=== PATIENT | male | born 1950 | race Caucasian/White ===

== ENCOUNTER → 2016-09-04 | Outpatient (CLI) | payer BC, MEDICARE ==
[~2016-09-04] MED LIST: ASCO-96 PO; ASPI-496 PO; HYDR25TA6 PO; LISI-170 PO; MULT-412 PO
[2016-09-04 14:05] LABS: BLOOD UREA NITROGEN 17 mg/dL (7-18)
[2016-09-04 14:10] LABS: ASPARTATE AMINO TRANSFERASE 22 U/L (15-37)
== END | disposition home or self-care (01) ==
LOC: STAR 12:51
PROVIDERS: ATTEND Surgery
DX: Z01.818 Encounter for other preprocedural examination (principal)
CPT/HCPCS: 36415; 80053; 93005

== ENCOUNTER 2016-09-11 07:55 | Inpatient (IN) | payer BC, MEDICARE ==
[2016-09-04 13:28] VITALS: BP 149/90
[~2016-09-11] VITALS: Ht 182.9 cm; Wt 99.2 kg
[2016-09-11] MEDS ORDERED: LACTATED RINGERS 1,000 ML IV SCH (08:26)
[2016-09-11] MEDS ORDERED: BUPIVACAINE/PF-EPI 0.25% 1:200K ONE (09:48)
[2016-09-11] MEDS ORDERED: HYDROmorphone 1 MG/ML, 1ML ONE (10:23)
[2016-09-11] MEDS ORDERED: FENTANYL PF 250 MCG/5ML ONE (10:23)
[2016-09-11] MEDS ORDERED: MIDAZOLAM 1 MG/ML, 2ML ONE (10:23)
[2016-09-11] MEDS ORDERED: KETAMINE 10 MG/ML, 20ML ONE (10:24)
[2016-09-11] MEDS ORDERED: ROCURONIUM 10 MG/ML ONE (10:33)
[2016-09-11] MEDS ORDERED: METOCLOPRAMIDE 5 MG/ML, 2ML ONE (10:33)
[2016-09-11] MEDS ORDERED: GLYCOPYRROLATE 0.2MG/1ML ONE (10:33)
[2016-09-11] MEDS ORDERED: ONDANSETRON 2MG/ML, 2ML ONE (10:33)
[2016-09-11] MEDS ORDERED: PROPOFOL 10 MG/ML, 20ML ONE (10:33)
[2016-09-11] MEDS ORDERED: DEXAMETHASONE 4 MG/ML, 1ML ONE (10:33)
[2016-09-11] MEDS ORDERED: EPHEDRINE 50 MG/ML, 1ML ONE (10:33)
[2016-09-11] MEDS ORDERED: CEFAZOLIN 1,000 MG ONE (10:33)
[2016-09-11] MEDS ORDERED: NEOSTIGMINE 1 MG/ML, 10ML ONE (10:33)
[2016-09-11] MEDS ORDERED: LABETALOL 5MG/ML, 20ML IV PRN (11:30)
[2016-09-11] MEDS ORDERED: METOPROLOL 1 MG/ML, 5ML IV PRN (11:30)
[2016-09-11] MEDS ORDERED: HYDROmorphone 1 MG/ML, 1ML IV PRN (11:30)
[2016-09-11] MEDS ORDERED: ACETAMINOPHEN 325 MG TABLET PO PRN (11:30)
[2016-09-11] MEDS ORDERED: EPHEDRINE 50 MG/ML, 1ML IVPush PRN (11:30)
[2016-09-11] MEDS ORDERED: ALBUTEROL SULFATE 2.5 MG/3 ML NPPB PRN (11:30)
[2016-09-11] MEDS ORDERED: ONDANSETRON 2MG/ML, 2ML IVPush PRN (11:30)
[2016-09-11] MEDS ORDERED: FENTANYL PF 100 MCG/2ML IV PRN (11:30)
[2016-09-11] MEDS ORDERED: OXYcodone 5 MG/5 ML ORAL.SOL UDC PO PRN (11:30)
[2016-09-11] MEDS ORDERED: hydrALAzine 20 MG/ML, 1ML IV PRN (11:30)
[2016-09-11] MEDS ORDERED: BACITRACIN 50,000 UNIT ONE (12:00)
[2016-09-11] MEDS ORDERED: HYDROmorphone PCA 30 MG/30 ML IV PRN (13:00)
[2016-09-11] MEDS ORDERED: LORazepam 2 MG/ML, 1ML IV PRN (15:30)
[2016-09-11] MEDS ORDERED: OXYcodone/APAP 5/325MG TABLET PO PRN (15:30)
[2016-09-11] MEDS ORDERED: LACTATED RINGERS 500 ML IV PRN (15:30)
[2016-09-11] MEDS ORDERED: LORazepam 1MG TABLET PO PRN (15:30)
[2016-09-11] MEDS: D5%-LR+KCL 20MEQ 1,000 ML IV SCH (17:09)
[2016-09-11 20:36] VITALS: BP 116/77
[2016-09-11] MEDS: KETOROLAC 30 MG/1 ML IV PRN (22:02)
[2016-09-12 00:06] VITALS: BP 100/64
[2016-09-12] MEDS: D5%-LR+KCL 20MEQ 1,000 ML IV SCH ×3 (00:51→15:30)
[2016-09-12 04:00] VITALS: BP 104/65
[2016-09-12 05:24] LABS: BLOOD UREA NITROGEN 28 mg/dL (7-18)
[2016-09-12] MEDS: KETOROLAC 30 MG/1 ML IV PRN (05:40)
[2016-09-12 07:14] VITALS: BP 109/68
[2016-09-12] MEDS ORDERED: LISINOPRIL 20 MG TABLET PO SCH ×2 (09:00)
[2016-09-12] MEDS ORDERED: HYDROCHLOROTHIAZIDE 25 MG TABLET PO SCH (09:00)
[2016-09-12 09:36] VITALS: BP 132/76
[2016-09-12 12:49] VITALS: BP 108/67
[2016-09-12 16:43] VITALS: BP 112/70
== END 2016-09-12 17:10 | disposition home or self-care (01) | DRG 355 ==
LOC: OUT 07:55 → 4NOR 14:40 → OUT 15:16 → 4NOR 15:17 → DCLOUNGE 09-12 16:56
PROVIDERS: ADMIT Surgery; ATTEND Surgery
PROC: 0WQF0ZZ Repair Abdominal Wall, Open Approach (ICD-10-PCS; principal; 2016-09-11 10:30)
DX: K43.2 Incisional hernia without obstruction or gangrene (principal); E11.9 Type 2 diabetes mellitus without complications; E78.00 Pure hypercholesterolemia, unspecified; I10 Essential (primary) hypertension; G47.30 Sleep apnea, unspecified; E78.1 Pure hyperglyceridemia; Z81.8 Family history of other mental and behavioral disorders; Z82.61 Family history of arthritis; Z82.5 Family history of asthma and other chronic lower respiratory diseases; Z80.3 Family history of malignant neoplasm of breast; Z98.84 Bariatric surgery status; Z80.1 Family history of malignant neoplasm of trachea, bronchus and lung; Z80.42 Family history of malignant neoplasm of prostate; Z82.3 Family history of stroke; Z82.49 Family history of ischemic heart disease and other diseases of the circulatory system; Z91.040 Latex allergy status
CPT/HCPCS: 36415; 80048; 82040; 85025; 86850; 86900; C1729; J0690; J1100; J1170; J1885; J2250; J2405; J2704; J2710; J3010; J3490; C1765; C1781; J2765; J3480; J7120